=== PATIENT | female | born 1995 | race Caucasian/White ===

== ENCOUNTER 2020-12-02 00:03 | Emergency (ER) | payer OTHER ==
[~2020-12-02] VITALS: Ht 167.6 cm; Wt 102.6 kg
[2020-12-02 01:25] VITALS: BP 118/82
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
[2020-12-02] MEDS ORDERED: DIAZEPAM 5 MG TABLET PO ONE (01:30)
[2020-12-02] MEDS ORDERED: KETOROLAC 10MG TABLET PO ONE (01:30)
[2020-12-02] MEDS ORDERED: OLANZAPINE 10 MG TABLET PO ONE (01:30)
[2020-12-02] MEDS ORDERED: DIAZEPAM 5 MG TABLET ONE (01:43)
[2020-12-02] MEDS ORDERED: OLANZAPINE 10 MG TABLET ONE (01:43)
--- NOTE | 2020-12-02 01:47 | NUR ---
pt medicated per order, tolerated well. vss, nadn.
[2020-12-02] MEDS ORDERED: PLEASE ENTER ALLERGIES MC SCH (02:00)
--- NOTE | 2020-12-02 02:18 | NUR ---
pt educated on dc instructions, verbalized understanding. ambulatory to dc desk with steday gait.
== END 2020-12-02 02:20 | disposition home or self-care (01) ==
LOC: ED 02:15
DX: S39.012A Strain of muscle, fascia and tendon of lower back, initial encounter (principal); F41.1 Generalized anxiety disorder
CPT/HCPCS: 99284